=== PATIENT | female | born 1955 | race Caucasian/White ===

== ENCOUNTER 2017-10-12 09:02 | Emergency (ER) | payer BC ==
[~2017-10-12] VITALS: Ht 162.6 cm; Wt 62.8 kg
[~2017-10-12 09:02] MED LIST: MOTRIN600 MG PO
[2017-10-12] MEDS ORDERED: MOTRIN600 MG PO (11:27)
[2017-10-12] MEDS ORDERED: PERCOCET 5/31 TABLET PO (11:27)
[2017-10-12 12:10] VITALS: BP 131/76
== END 2017-10-12 12:08 | disposition home or self-care (01) ==
LOC: EME 09:02
PROC: 2W39X1Z Immobilization of Left Upper Extremity using Splint (ICD-10-PCS; principal; 2017-10-12)
DX: S52.125A Nondisplaced fracture of head of left radius, initial encounter for closed fracture (principal); S52.135A Nondisplaced fracture of neck of left radius, initial encounter for closed fracture; W01.0XXA Fall on same level from slipping, tripping and stumbling without subsequent striking against object, initial encounter; I10 Essential (primary) hypertension; E78.5 Hyperlipidemia, unspecified; Z88.0 Allergy status to penicillin
CPT/HCPCS: 73080; 73090; 73110; 99281; 99284